=== PATIENT | female | born 1950 | race Two or more races ===

== ENCOUNTER 2020-02-09 13:39 | Inpatient (IN) | payer MEDICARE ==
[~2020-02-09] VITALS: Ht 157.5 cm; Wt 69.8 kg
[2020-02-09 18:32] LABS: Basophils # (auto) 0 10 ^3/uL (0-0.2); Basophils % (auto) 0.8 % (0.0-2.0); Eosinophils # (auto) 0.1 10 ^3/uL (0-0.8); Hematocrit 37.8 % (36.0-46.0); Hemoglobin 12.5 g/dL (12.2-16.2); Lymphocytes # (auto) 1.4 10 ^3/uL (0.4-5.4); Lymphocytes % (auto) 31.4 % (10.0-50.0); Mean Corpuscular Hemoglobin 28.4 pg (28.0-32.0); Mean Corpuscular Hgb Conc. 33.1 g/dL (32.0-36.0); Mean Corpuscular Volume 85.6 fL (80.0-100.0); Monocytes # (auto) 0.4 10 ^3/uL (0-1.3); Neutrophils # (auto) 2.4 10 ^3/uL (1.6-8.6); Neutrophils % (auto) 55.8 % (37.0-80.0); Nucleated Red Blood Cells % 0.2 %; Platelet Count (auto) 304 10^3/uL (140-450); Red Blood Cells 4.41 10^6/uL (4.0-5.20); Red Cell Distribution Width 12.1 % (11.8-14.3); White Blood Cell 4.3 10^3/uL (4.4-10.8)
[2020-02-09 18:45] LABS: Albumin 2.9 g/dL (3.4-5.0); Calcium 8.6 mg/dL (8.5-10.1); Potassium 3.9 mmol/L (3.5-5.1)
[2020-02-09 18:48] LABS: BUN/Creatinine Ratio 9.8; Bilirubin, Total 0.2 mg/dL (0.2-1.0); Total Protein 7.9 g/dL (6.4-8.2)
[2020-02-09 18:49] LABS: INR 1.02 (0.9-1.15); Partial Thromboplastin Time 28.8 sec (23.0-31.2)
[2020-02-09] MEDS ORDERED: ACETAMINOPHEN 325 MG TAB PO ONE (21:00)
[2020-02-09] MEDS ORDERED: AZITHROMYCIN 500MG/ 250ML 250 ML IV ONE (21:00)
[2020-02-09] MEDS ORDERED: ZINC SULFATE 220mg CAP or TAB PO ONE (21:00)
[2020-02-09] MEDS ORDERED: ASCORBIC ACID 500 MG TAB PO ONE (21:00)
[2020-02-10] MEDS ORDERED: MORPHINE SULF INJ 2 MG/ML SYRINGE 1ML IV PRN (04:15)
[2020-02-10] MEDS ORDERED: DOCUSATE SOD 100 MG CAP PO PRN (04:15)
[2020-02-10] MEDS ORDERED: NITROGLYCERIN 0.4 MG SL TAB SL PRN (04:15)
[2020-02-10] MEDS ORDERED: ACETAMINOPHEN 500 MG TAB PO PRN (04:15)
[2020-02-10] MEDS ORDERED: ONDANSETRON HCL 4 MG/2 ML VIAL IV PRN (04:15)
[2020-02-10] MEDS: SODIUM CHLORIDE 0.9% 1,000 ML IV SCH ×2 (05:30→21:51)
[2020-02-10 07:01] LABS: Basophils # (auto) 0 10 ^3/uL (0-0.2); Basophils % (auto) 0.6 % (0.0-2.0); Eosinophils # (auto) 0.1 10 ^3/uL (0-0.8); Eosinophils % (auto) 3.3 % (0.0-7.0); Hematocrit 36.2 % (36.0-46.0); Hemoglobin 11.8 g/dL (12.2-16.2); Lymphocytes # (auto) 1.1 10 ^3/uL (0.4-5.4); Lymphocytes % (auto) 31.1 % (10.0-50.0); Mean Corpuscular Hemoglobin 27.8 pg (28.0-32.0); Mean Corpuscular Hgb Conc. 32.7 g/dL (32.0-36.0); Mean Corpuscular Volume 84.9 fL (80.0-100.0); Monocytes # (auto) 0.4 10 ^3/uL (0-1.3); Monocytes % (auto) 12.4 % (0.0-12.0); Neutrophils # (auto) 1.8 10 ^3/uL (1.6-8.6); Neutrophils % (auto) 52.6 % (37.0-80.0); Platelet Count (auto) 261 10^3/uL (140-450); Red Blood Cells 4.27 10^6/uL (4.0-5.20); Red Cell Distribution Width 12.2 % (11.8-14.3); White Blood Cell 3.4 10^3/uL (4.4-10.8)
[2020-02-10 07:33] LABS: Albumin 2.7 g/dL (3.4-5.0); Calcium 8.9 mg/dL (8.5-10.1); Magnesium 1.6 mg/dL (1.6-2.6); Potassium 3.5 mmol/L (3.5-5.1)
[2020-02-10 07:36] LABS: Bilirubin, Total 0.4 mg/dL (0.2-1.0); Total Protein 7.2 g/dL (6.4-8.2)
[2020-02-10] MEDS: BUDESONIDE (INHALATION) 180 MCG IH IN SCH ×2 (10:00→20:58)
[2020-02-10] MEDS: DexAMETHasone SOD PHOS 10MG/1ML VIAL INJ IV SCH (10:21)
[2020-02-10] MEDS: PANTOPRAZOLE 40 MG/10 ML VIAL INJ IV SCH (10:22)
[2020-02-10] MEDS: CHOLECALCIFEROL (VITD3) 2,000 UNIT CAP PO SCH (10:22)
[2020-02-10] MEDS: DOXYCYCLINE 100MG/250ML 250 ML IV SCH ×2 (10:22→21:51)
[2020-02-10] MEDS: ZINC SULFATE 220mg CAP or TAB PO SCH (10:22)
[2020-02-10] MEDS: ENOXAPARIN SOD 40 MG/0.4 ML SYRINGE SC SCH (10:22)
[2020-02-10] MEDS: ASCORBIC ACID 1,000 MG TAB PO SCH (10:22)
[2020-02-10] MEDS: MULTIPLE VITAMIN TAB PO SCH (10:22)
[2020-02-10] MEDS: ALBUTEROL SULF HFA 90MCG INH 200DOSE IN PRN (20:58)
[2020-02-11] MEDS: BUDESONIDE (INHALATION) 180 MCG IH IN SCH ×2 (09:05→22:00)
[2020-02-11] MEDS: ALBUTEROL SULF HFA 90MCG INH 200DOSE IN PRN (09:05)
[2020-02-11 09:07] LABS: Basophils # (auto) 0 10 ^3/uL (0-0.2); Basophils % (auto) 0.6 % (0.0-2.0); Eosinophils # (auto) 0 10 ^3/uL (0-0.8); Eosinophils % (auto) 0.3 % (0.0-7.0); Hemoglobin 12.8 g/dL (12.2-16.2); Lymphocytes # (auto) 0.7 10 ^3/uL (0.4-5.4); Lymphocytes % (auto) 22.2 % (10.0-50.0); Mean Corpuscular Hemoglobin 28.4 pg (28.0-32.0); Mean Corpuscular Hgb Conc. 33.7 g/dL (32.0-36.0); Mean Corpuscular Volume 84.3 fL (80.0-100.0); Monocytes # (auto) 0.4 10 ^3/uL (0-1.3); Monocytes % (auto) 10.6 % (0.0-12.0); Neutrophils # (auto) 2.2 10 ^3/uL (1.6-8.6); Neutrophils % (auto) 66.3 % (37.0-80.0); Platelet Count (auto) 353 10^3/uL (140-450); Red Blood Cells 4.51 10^6/uL (4.0-5.20); Red Cell Distribution Width 11.9 % (11.8-14.3); White Blood Cell 3.3 10^3/uL (4.4-10.8)
[2020-02-11 09:29] LABS: Albumin 2.9 g/dL (3.4-5.0); Calcium 9.1 mg/dL (8.5-10.1); Potassium 3.4 mmol/L (3.5-5.1)
[2020-02-11 09:33] LABS: Bilirubin, Total 0.4 mg/dL (0.2-1.0); Total Protein 8.1 g/dL (6.4-8.2)
[2020-02-11] MEDS: CHOLECALCIFEROL (VITD3) 2,000 UNIT CAP PO SCH (10:00)
[2020-02-11] MEDS: ENOXAPARIN SOD 40 MG/0.4 ML SYRINGE SC SCH (10:00)
[2020-02-11] MEDS: DOXYCYCLINE 100MG/250ML 250 ML IV SCH ×2 (10:00→22:20)
[2020-02-11] MEDS: DexAMETHasone SOD PHOS 10MG/1ML VIAL INJ IV SCH (10:00)
[2020-02-11] MEDS: ZINC SULFATE 220mg CAP or TAB PO SCH (10:00)
[2020-02-11] MEDS: MULTIPLE VITAMIN TAB PO SCH (10:00)
[2020-02-11] MEDS: ASCORBIC ACID 1,000 MG TAB PO SCH (10:00)
[2020-02-11] MEDS: PANTOPRAZOLE 40 MG/10 ML VIAL INJ IV SCH (10:00)
[2020-02-11] MEDS ORDERED: DexAMETHasone SOD PHOS 4 MG/1ML SDV INJ ONE (10:41)
[2020-02-11] MEDS: SODIUM CHLORIDE 0.9% 1,000 ML IV SCH (11:30)
[2020-02-11] MEDS ORDERED: FUROSEMIDE 20 MG/2 ML VIAL IV ONE (14:30)
[2020-02-11] MEDS ORDERED: POTASSIUM EFFERVESENT TAB 25 MEQ GT ONE (14:30)
[2020-02-11] MEDS ORDERED: REMDESIVIR PER PHARMACY 0 ML IV SCH (15:00)
[2020-02-11] MEDS ORDERED: REMDESIVIR 200 MG in NS 210ml LOADING DOSE ADULT IV ONE (17:00)
[2020-02-11 23:08] VITALS: BP 156/98
[2020-02-11 23:13] VITALS: BP 156/98
[2020-02-11] MEDS ORDERED: ATOR20TA50 PO (23:32)
[2020-02-11] MEDS ORDERED: METO-158 PO (23:32)
[2020-02-11] MEDS ORDERED: METF-370 PO (23:32)
[2020-02-12 05:27] VITALS: BP 155/77
[2020-02-12] MEDS: hydrALAZINE HCL 20 MG/ML VL IV PRN (07:22)
[2020-02-12 08:00] LABS: Basophils # (auto) 0 10 ^3/uL (0-0.2); Basophils % (auto) 0.5 % (0.0-2.0); Eosinophils # (auto) 0 10 ^3/uL (0-0.8); Eosinophils % (auto) 0.5 % (0.0-7.0); Hematocrit 36.5 % (36.0-46.0); Hemoglobin 12.3 g/dL (12.2-16.2); Lymphocytes # (auto) 0.9 10 ^3/uL (0.4-5.4); Lymphocytes % (auto) 20.7 % (10.0-50.0); Mean Corpuscular Hemoglobin 28.4 pg (28.0-32.0); Mean Corpuscular Hgb Conc. 33.7 g/dL (32.0-36.0); Mean Corpuscular Volume 84.4 fL (80.0-100.0); Monocytes # (auto) 0.4 10 ^3/uL (0-1.3); Monocytes % (auto) 9.5 % (0.0-12.0); Neutrophils # (auto) 3.1 10 ^3/uL (1.6-8.6); Neutrophils % (auto) 68.8 % (37.0-80.0); Nucleated Red Blood Cells % 0.1 %; Platelet Count (auto) 338 10^3/uL (140-450); Red Blood Cells 4.33 10^6/uL (4.0-5.20); Red Cell Distribution Width 12.1 % (11.8-14.3); White Blood Cell 4.5 10^3/uL (4.4-10.8)
[2020-02-12 08:10] LABS: Potassium 3.3 mmol/L (3.5-5.1)
[2020-02-12 08:19] LABS: Albumin 2.8 g/dL (3.4-5.0); BUN/Creatinine Ratio 17.3; Bilirubin, Total 0.3 mg/dL (0.2-1.0); Calcium 8.7 mg/dL (8.5-10.1); Total Protein 7.3 g/dL (6.4-8.2)
[2020-02-12] MEDS: PANTOPRAZOLE 40 MG/10 ML VIAL INJ IV SCH (09:33)
[2020-02-12] MEDS: POTASSIUM EFFERVESENT TAB 25 MEQ GT SCH (09:33)
[2020-02-12] MEDS: ZINC SULFATE 220mg CAP or TAB PO SCH (09:34)
[2020-02-12] MEDS: ENOXAPARIN SOD 40 MG/0.4 ML SYRINGE SC SCH (09:34)
[2020-02-12] MEDS: CHOLECALCIFEROL (VITD3) 2,000 UNIT CAP PO SCH (09:34)
[2020-02-12] MEDS: MULTIPLE VITAMIN TAB PO SCH (09:34)
[2020-02-12] MEDS: ASCORBIC ACID 1,000 MG TAB PO SCH (09:34)
[2020-02-12] MEDS: DOXYCYCLINE 100MG/250ML 250 ML IV SCH ×2 (09:34→22:51)
[2020-02-12] MEDS: FUROSEMIDE 20 MG/2 ML VIAL IV SCH (09:36)
[2020-02-12] MEDS: DexAMETHasone SOD PHOS 10MG/1ML VIAL INJ IV SCH (09:36)
[2020-02-12] MEDS: BUDESONIDE (INHALATION) 180 MCG IH IN SCH ×3 (10:00→23:11)
[2020-02-12] MEDS: REMDESIVIR 100 MG in SODIUM CHL 0.9% 250 ML IV SCH (15:32)
[2020-02-12 22:00] VITALS: BP 132/85
[2020-02-13] MEDS: ALBUTEROL SULF HFA 90MCG INH 200DOSE IN PRN ×3 (01:29→19:37)
[2020-02-13] MEDS: hydrALAZINE HCL 20 MG/ML VL IV PRN ×2 (05:39→18:08)
[2020-02-13 06:11] LABS: Urine Bacteria NONE SEEN /hpf (None Seen); Urine Blood Negative /uL (Negative); Urine Specific Gravity 1.011 (1.001-1.035); Urine WBC <1 /hpf (0 - 5)
[2020-02-13 06:40] VITALS: BP 110/58
[2020-02-13] MEDS ORDERED: DEXTROSE (50%) 50ML SYRG IV PRN (06:45)
[2020-02-13 07:10] LABS: Basophils # (auto) 0 10 ^3/uL (0-0.2); Eosinophils # (auto) 0 10 ^3/uL (0-0.8); Hemoglobin 12.8 g/dL (12.2-16.2); Lymphocytes # (auto) 0.8 10 ^3/uL (0.4-5.4); Monocytes # (auto) 0.4 10 ^3/uL (0-1.3); Nucleated Red Blood Cells % 0.1 %
[2020-02-13 07:12] LABS: Basophils % (auto) 0.6 % (0.0-2.0); Hematocrit 38.1 % (36.0-46.0); Lymphocytes % (auto) 15.9 % (10.0-50.0); Mean Corpuscular Hgb Conc. 33.5 g/dL (32.0-36.0); Mean Corpuscular Volume 83.7 fL (80.0-100.0); Monocytes % (auto) 7.2 % (0.0-12.0); Neutrophils % (auto) 76.3 % (37.0-80.0); Platelet Count (auto) 465 10^3/uL (140-450); Red Blood Cells 4.55 10^6/uL (4.0-5.20); Red Cell Distribution Width 12.4 % (11.8-14.3); White Blood Cell 5.3 10^3/uL (4.4-10.8)
[2020-02-13 07:36] LABS: Potassium 4.3 mmol/L (3.5-5.1)
[2020-02-13] MEDS: BUDESONIDE (INHALATION) 180 MCG IH IN SCH ×2 (07:38→19:10)
[2020-02-13 07:48] LABS: BUN/Creatinine Ratio 26.8; Bilirubin, Total 0.4 mg/dL (0.2-1.0); Calcium 9.3 mg/dL (8.5-10.1)
[2020-02-13 09:00] VITALS: BP 117/63
[2020-02-13] MEDS: POTASSIUM EFFERVESENT TAB 25 MEQ GT SCH (10:41)
[2020-02-13] MEDS: PANTOPRAZOLE 40 MG/10 ML VIAL INJ IV SCH (10:43)
[2020-02-13] MEDS: FUROSEMIDE 20 MG/2 ML VIAL IV SCH (10:43)
[2020-02-13] MEDS: ZINC SULFATE 220mg CAP or TAB PO SCH (10:45)
[2020-02-13] MEDS: MULTIPLE VITAMIN TAB PO SCH (10:45)
[2020-02-13] MEDS: CHOLECALCIFEROL (VITD3) 2,000 UNIT CAP PO SCH (10:46)
[2020-02-13] MEDS: ASCORBIC ACID 1,000 MG TAB PO SCH (10:46)
[2020-02-13] MEDS: ENOXAPARIN SOD 40 MG/0.4 ML SYRINGE SC SCH (10:47)
[2020-02-13] MEDS: DexAMETHasone SOD PHOS 10MG/1ML VIAL INJ IV SCH (11:04)
[2020-02-13] MEDS: DOXYCYCLINE 100MG/250ML 250 ML IV SCH ×2 (11:05→21:47)
[2020-02-13] MEDS: ACCU-CHEK COMFORT CURVE STRIP VI SCH ×3 (12:51→23:55)
[2020-02-13] MEDS: InsuLIN REG 1unit/0.01ml Soln (100units/ml) SC SCH ×2 (12:51→17:25)
[2020-02-13 13:00] VITALS: BP 123/79
[2020-02-13 16:00] VITALS: BP 150/86
[2020-02-13] MEDS: REMDESIVIR 100 MG in SODIUM CHL 0.9% 250 ML IV SCH (16:22)
[2020-02-14] VITALS: BP 158/80
[2020-02-14] MEDS: hydrALAZINE HCL 20 MG/ML VL IV PRN (00:10)
[2020-02-14 05:20] VITALS: BP 127/75
[2020-02-14] MEDS: ACCU-CHEK COMFORT CURVE STRIP VI SCH ×4 (05:30→23:47)
[2020-02-14] MEDS: InsuLIN REG 1unit/0.01ml Soln (100units/ml) SC SCH ×5 (05:31→23:53)
[2020-02-14 06:47] LABS: Basophils # (auto) 0.1 10 ^3/uL (0-0.2); Basophils % (auto) 1.2 % (0.0-2.0); Eosinophils # (auto) 0 10 ^3/uL (0-0.8); Hemoglobin 13.5 g/dL (12.2-16.2); Lymphocytes # (auto) 0.9 10 ^3/uL (0.4-5.4); Mean Corpuscular Hemoglobin 28.7 pg (28.0-32.0); Neutrophils # (auto) 4.3 10 ^3/uL (1.6-8.6)
[2020-02-14 06:54] LABS: Hematocrit 39.6 % (36.0-46.0); Lymphocytes % (auto) 16.3 % (10.0-50.0); Mean Corpuscular Volume 84.5 fL (80.0-100.0); Monocytes # (auto) 0.5 10 ^3/uL (0-1.3); Monocytes % (auto) 8.8 % (0.0-12.0); Neutrophils % (auto) 73.7 % (37.0-80.0); Nucleated Red Blood Cells % 0.3 %; Platelet Count (auto) 444 10^3/uL (140-450); Red Blood Cells 4.69 10^6/uL (4.0-5.20); Red Cell Distribution Width 12.5 % (11.8-14.3); White Blood Cell 5.8 10^3/uL (4.4-10.8)
[2020-02-14 07:10] LABS: Potassium 3.6 mmol/L (3.5-5.1)
[2020-02-14 07:43] LABS: Albumin 3.1 g/dL (3.4-5.0); BUN/Creatinine Ratio 27.8; Bilirubin, Total 0.3 mg/dL (0.2-1.0); Total Protein 7.8 g/dL (6.4-8.2)
[2020-02-14 08:00] VITALS: BP 129/68
[2020-02-14 08:03] LABS: CRP High Sensitivity 1.11 mg/dL (< 0.3)
[2020-02-14] MEDS: ALBUTEROL SULF HFA 90MCG INH 200DOSE IN PRN (09:54)
[2020-02-14] MEDS: BUDESONIDE (INHALATION) 180 MCG IH IN SCH ×2 (09:54→22:22)
[2020-02-14] MEDS: DexAMETHasone SOD PHOS 10MG/1ML VIAL INJ IV SCH (10:10)
[2020-02-14] MEDS: FUROSEMIDE 20 MG/2 ML VIAL IV SCH (10:10)
[2020-02-14] MEDS: PANTOPRAZOLE 40 MG/10 ML VIAL INJ IV SCH (10:10)
[2020-02-14] MEDS: DOXYCYCLINE 100MG/250ML 250 ML IV SCH ×2 (10:10→21:12)
[2020-02-14] MEDS: CHOLECALCIFEROL (VITD3) 2,000 UNIT CAP PO SCH (10:11)
[2020-02-14] MEDS: ZINC SULFATE 220mg CAP or TAB PO SCH (10:11)
[2020-02-14] MEDS: ASCORBIC ACID 1,000 MG TAB PO SCH (10:11)
[2020-02-14] MEDS: POTASSIUM EFFERVESENT TAB 25 MEQ PO SCH (10:11)
[2020-02-14] MEDS: MULTIPLE VITAMIN TAB PO SCH (10:11)
[2020-02-14] MEDS: ENOXAPARIN SOD 40 MG/0.4 ML SYRINGE SC SCH (10:12)
[2020-02-14] MEDS: REMDESIVIR 100 MG in SODIUM CHL 0.9% 250 ML IV SCH (15:02)
[2020-02-14 16:00] VITALS: BP 133/77
[2020-02-14 22:00] VITALS: BP 188/93
[2020-02-15] VITALS (7 sets, daily range): BP systolic 110–140; BP diastolic 60–80
[2020-02-15] MEDS: ACCU-CHEK COMFORT CURVE STRIP VI SCH ×4 (05:40→23:49)
[2020-02-15] MEDS: InsuLIN REG 1unit/0.01ml Soln (100units/ml) SC SCH ×4 (05:41→23:47)
[2020-02-15] MEDS: DexAMETHasone SOD PHOS 10MG/1ML VIAL INJ IV SCH (10:20)
[2020-02-15] MEDS: FUROSEMIDE 20 MG/2 ML VIAL IV SCH (10:20)
[2020-02-15] MEDS: CHOLECALCIFEROL (VITD3) 2,000 UNIT CAP PO SCH (10:21)
[2020-02-15] MEDS: MULTIPLE VITAMIN TAB PO SCH (10:21)
[2020-02-15] MEDS: PANTOPRAZOLE 40 MG/10 ML VIAL INJ IV SCH (10:21)
[2020-02-15] MEDS: POTASSIUM EFFERVESENT TAB 25 MEQ PO SCH (10:21)
[2020-02-15] MEDS: ZINC SULFATE 220mg CAP or TAB PO SCH (10:21)
[2020-02-15] MEDS: ASCORBIC ACID 1,000 MG TAB PO SCH (10:21)
[2020-02-15] MEDS: ENOXAPARIN SOD 40 MG/0.4 ML SYRINGE SC SCH (10:22)
[2020-02-15 10:37] LABS: BUN/Creatinine Ratio 26.6; Calcium 8.3 mg/dL (8.5-10.1); Potassium 3.4 mmol/L (3.5-5.1)
[2020-02-15 10:42] LABS: Basophils # (auto) 0 10 ^3/uL (0-0.2); Basophils % (auto) 0.4 % (0.0-2.0); Eosinophils # (auto) 0 10 ^3/uL (0-0.8); Eosinophils % (auto) 0.1 % (0.0-7.0); Hematocrit 36.1 % (36.0-46.0); Hemoglobin 12.3 g/dL (12.2-16.2); Lymphocytes % (auto) 18.8 % (10.0-50.0); Mean Corpuscular Hgb Conc. 34.1 g/dL (32.0-36.0); Monocytes # (auto) 0.5 10 ^3/uL (0-1.3); Monocytes % (auto) 8.6 % (0.0-12.0); Neutrophils # (auto) 3.9 10 ^3/uL (1.6-8.6); Neutrophils % (auto) 72.1 % (37.0-80.0); Platelet Count (auto) 393 10^3/uL (140-450); Red Blood Cells 4.24 10^6/uL (4.0-5.20); Red Cell Distribution Width 12.1 % (11.8-14.3); White Blood Cell 5.4 10^3/uL (4.4-10.8)
[2020-02-15] MEDS: BUDESONIDE (INHALATION) 180 MCG IH IN SCH ×2 (14:12→22:29)
[2020-02-15] MEDS: REMDESIVIR 100 MG in SODIUM CHL 0.9% 250 ML IV SCH (15:51)
[2020-02-15] MEDS ORDERED: POTASSIUM CHL 20 Meq TABLET PO ONE (16:30)
[2020-02-16] MEDS: InsuLIN REG 1unit/0.01ml Soln (100units/ml) SC SCH ×3 (06:00→17:45)
[2020-02-16] MEDS: ACCU-CHEK COMFORT CURVE STRIP VI SCH ×3 (06:31→17:44)
[2020-02-16 08:00] VITALS: BP 125/78
[2020-02-16] MEDS: POTASSIUM EFFERVESENT TAB 25 MEQ PO SCH (10:00)
[2020-02-16] MEDS: DexAMETHasone SOD PHOS 10MG/1ML VIAL INJ IV SCH (10:54)
[2020-02-16] MEDS: FUROSEMIDE 20 MG/2 ML VIAL IV SCH (10:55)
[2020-02-16] MEDS: PANTOPRAZOLE 40 MG/10 ML VIAL INJ IV SCH (10:56)
[2020-02-16] MEDS: POTASSIUM CHL 20 Meq TABLET PO SCH (10:59)
[2020-02-16] MEDS: ZINC SULFATE 220mg CAP or TAB PO SCH (10:59)
[2020-02-16] MEDS: ASCORBIC ACID 1,000 MG TAB PO SCH (11:00)
[2020-02-16] MEDS: CHOLECALCIFEROL (VITD3) 2,000 UNIT CAP PO SCH (11:00)
[2020-02-16] MEDS: MULTIPLE VITAMIN TAB PO SCH (11:00)
[2020-02-16] MEDS: ENOXAPARIN SOD 40 MG/0.4 ML SYRINGE SC SCH (11:00)
[2020-02-16] MEDS: BUDESONIDE (INHALATION) 180 MCG IH IN SCH ×2 (12:54→21:45)
[2020-02-16 16:00] VITALS: BP 120/73
[2020-02-17 00:27] VITALS: BP 130/69
[2020-02-17] MEDS: InsuLIN REG 1unit/0.01ml Soln (100units/ml) SC SCH ×4 (01:12→18:00)
[2020-02-17] MEDS: ACCU-CHEK COMFORT CURVE STRIP VI SCH ×4 (06:00→18:00)
[2020-02-17 08:00] VITALS: BP 134/85
[2020-02-17] MEDS: DexAMETHasone SOD PHOS 10MG/1ML VIAL INJ IV SCH (08:57)
[2020-02-17] MEDS: BUDESONIDE (INHALATION) 180 MCG IH IN SCH (08:57)
[2020-02-17] MEDS: FUROSEMIDE 20 MG/2 ML VIAL IV SCH (08:58)
[2020-02-17] MEDS: ASCORBIC ACID 1,000 MG TAB PO SCH (08:58)
[2020-02-17] MEDS: MULTIPLE VITAMIN TAB PO SCH (08:58)
[2020-02-17] MEDS: POTASSIUM CHL 20 Meq TABLET PO SCH (08:58)
[2020-02-17] MEDS: ZINC SULFATE 220mg CAP or TAB PO SCH (08:58)
[2020-02-17] MEDS: PANTOPRAZOLE 40 MG/10 ML VIAL INJ IV SCH (08:58)
[2020-02-17] MEDS: ENOXAPARIN SOD 40 MG/0.4 ML SYRINGE SC SCH (08:59)
[2020-02-17] MEDS: CHOLECALCIFEROL (VITD3) 2,000 UNIT CAP PO SCH (08:59)
[2020-02-17] MEDS: POTASSIUM EFFERVESENT TAB 25 MEQ PO SCH (10:00)
[2020-02-17] MEDS ORDERED: DEX4T PO (14:09)
[2020-02-17] MEDS ORDERED: POTA-220 PO (14:09)
[2020-02-17] MEDS ORDERED: ASPI81CH59 PO (14:09)
[2020-02-17] MEDS ORDERED: SITA100T7 PO (14:09)
[2020-02-17] MEDS ORDERED: METO-169 PO (14:09)
[2020-02-17] MEDS ORDERED: LISI-646 PO (14:09)
[2020-02-17] MEDS ORDERED: ZINC100T5 PO (14:09)
[2020-02-17] MEDS ORDERED: DOCU100C8 PO (14:09)
[2020-02-17] MEDS ORDERED: CHOL1CAP47 PO (14:09)
[2020-02-17] MEDS ORDERED: ATO40T PO (14:09)
[2020-02-17] MEDS ORDERED: ASCO10003 PO (14:09)
[2020-02-17] MEDS ORDERED: METF-372 PO (14:09)
[2020-02-17] MEDS ORDERED: AZIT500T66 PO (14:09)
[2020-02-17] MEDS ORDERED: MULTTAB99 PO (14:09)
[2020-02-17 16:00] VITALS: BP 106/62
== END 2020-02-17 18:38 | disposition home or self-care (01) | DRG 177 ==
LOC: ER 13:39 → OVERFLOW 13:40 → TELE-WESTW 02-11 22:04
PROVIDERS: ADMIT Nurse Practitioner Family; ATTEND Internal Medicine Pulmonary Disease
PROC: XW033E5 Introduction of Remdesivir Anti-infective into Peripheral Vein, Percutaneous Approach, New Technology Group 5 (ICD-10-PCS; 2020-02-11)
PROC: XW13325 Transfusion of Convalescent Plasma (Nonautologous) into Peripheral Vein, Percutaneous Approach, New Technology Group 5 (ICD-10-PCS; principal; 2020-02-15)
DX: U07.1 COVID-19 (principal); J12.89 Other viral pneumonia; J96.01 Acute respiratory failure with hypoxia; E43 Unspecified severe protein-calorie malnutrition; E87.1 Hypo-osmolality and hyponatremia; I10 Essential (primary) hypertension; E78.5 Hyperlipidemia, unspecified; E11.9 Type 2 diabetes mellitus without complications; E66.9 Obesity, unspecified; Z68.27 Body mass index [BMI] 27.0-27.9, adult
CPT/HCPCS: 36415; 70450; 71045; 80048; 80053; 81001; 82728; 82962; 83036; 83615; 83735; 84443; 85025; 85379; 85610; 85730; 86141; 86850; 86900; 86901; 87426; 93005; 94640; 96365; 96366; C9113; G0378; J1100; J1815; J3490